=== PATIENT | male | born 1950 | race Caucasian/White ===

== ENCOUNTER 2017-06-08 10:16 | Emergency (ER) | payer OTHER, MEDICARE ==
[2017-06-08] MEDS ORDERED: MORPHINE SULFATE 4 MG/ML SYRG IV ONE (10:33)
[2017-06-08] MEDS ORDERED: ONDANSETRON HCL/PF 2 MG/ML VIAL IV ONE (10:54)
[2017-06-08] MEDS ORDERED: ONDANSETRON HCL/PF 2 MG/ML VIAL ONE (10:56)
[2017-06-08] MEDS ORDERED: MORPHINE SULFATE 4 MG/ML SYRG ONE (10:56)
[2017-06-08 12:58] VITALS: BP 108/58
--- NOTE | 2017-06-08 12:58 | ERNOTE ---
Upper Extremity HPI - Narrative Date of Service: 06/08/17 - General Extremities Pain Location: shoulder: right Time Seen by Provider: 06/08/17 10:28 Source: patient Exam Limitations: no limitations - Immun/Allergies/Home Medications Immunizations: IMMUNIZATION HX Immunizations Up to Date Yes History of Influenza Vaccine Yes Hx Pneumococcal Vaccination Yes Allergies/Adverse Reactions: Allergies Allergy/AdvReac Type Severity Reaction Status Date / Time No Known Allergies Allergy Verified 06/08/17 10:26 Home Medications: HOME MEDICATIONS Atorvastatin Calcium 40 mg PO HS 01/17/15 [Last Taken Unknown] Cholecalciferol (Vitamin D3) [Vitamin D3] 2,000 unit PO DAILY 01/17/15 [Last Taken Unknown] Citalopram Hydrobromide [Celexa] 40 mg PO DAILY 01/17/15 [Last Taken Unknown] Hydrochlorothiazide [Hydrodiuril] 25 mg PO DAILY 01/17/15 [Last Taken Unknown] Losartan Potassium [Cozaar] 100 mg PO DAILY 01/17/15 [Last Taken Unknown] Pregabalin [Lyrica] 150 mg PO BID 01/17/15 [Last Taken Unknown] Simvastatin [Zocor] 40 mg PO HS 01/17/15 [Last Taken Unknown] buPROPion HCL [Wellbutrin SR] 100 mg PO BID 01/17/15 [Last Taken Unknown] HYDROcodone/ACETAMINOPHEN [[place] 5-325 Tablet] 1 each PO Q8H PRN #15 tablet [Last Taken Unknown] - History of Present Illness Narrative: patient presents to the ED for right shoulder injury. He relates that he tripped getting out of bed at 4am and fell onto his right shoulder. He had immediate pain right shoulder. Some numbness in the fingers on the right but denies focal weakness. Denies other injuries. No head injury, no CP or SOB. No abdominal pain. No neck or acute back pain. Pain can be severe with any kind of movement. Has not seen anyone else for this. All pain localized to right shoulder and mid humerus area. Occurred: this morning Location of Incident: home Severity: severe Method of Injury: Reports: fell, direct blow Reason for Fall: Reports: tripped Loss of Consciousness: Reports: no loss of consciousness Modifying Factors - (Improves): Reports: rest Modifying Factors - (Worsens): Reports: movement Associated Symptoms: Denies: weakness Other Injuries: Reports: none Prior Treament: Denies: recently seen Review of Systems - Review of Systems Constitutional: Absent: fever EYE: Absent: vision changes Respiratory: Absent: shortness of breath Cardiology: Absent: chest pain Gastrointestinal/Abdominal: Absent: abdominal pain Genitourinary: Absent: dysuria Musculoskeletal: Present: See HPI Skin: Absent: rash Neurological: Absent: weakness - Patient's Past Medical History Patient History - Medical: Anxiety, Diabetes Type 2 Insulin Dependent Patient History - Cardiac/Respiratory: Asthma, Hypertension, Hyperlipidemia Patient History - Cancer: No Hx of Cancer Patient History - Other: None - Family History Mother Family History - Medical: Diabetes Type 2 Insulin Dependent Family History - Cardiac/Respiratory: No pertinent hx - Social History Living Situations: home Abuse History: No History of abuse Psych History: Hx of Anxiety Alcohol Use: none Drug Use: none - Immunizations Immunizations Up to Date: Yes Hx Pneumococcal Vaccination: Yes History of Influenza Vaccine: Yes Physical Exam - Physical Exam General Appearance: Present: alert, no apparent distress Head Exam: Present: normal inspection, no evidence of injury Eye Exam: Normal inspection: bilateral, PERRL: bilateral Ears, Nose, Throat: Present: normal ENT inspection Neck: Present: normal inspection, nontender. Absent: tender posterior midline Respiratory: Present: no respiratory distress, normal breath sounds, lungs clear Cardiovascular/Chest: Present: regular rate, rhythm, normal peripheral pulses, other - strong radial pulse Gastrointestinal/Abdominal: Present: normal bowel sounds, nontender, nondistended, soft Back Exam: Present: normal inspection, no vertebral tenderness Extremity Exam: Present: other - tenderness lateral right shoulder. Any ROM right shoulder causes pain. Mild tendenress mid humerus also. No specific elbow or forearm/wrist tenderness. No open fracture. No compartment syndrome. Neurological Exam: Present: alert, normal mood/affect, calciminer II-XII nml as tested , other - pain limits exam but no clear loss of motor function right hand, can squeeze my fingers. Lateral deltoid LT sensation inteact. Sensation hand intact. No clear acute motor or sensory deficits. Skin Exam: Present: normal color, warm/dry ED Progress - Vital Signs Patient's Vital Signs:: I have reviewed the patient's vital signs. Vital Signs: Vital Signs 06/08/17 10:19 Temperature 36.8 C Pulse Rate 51 L Respiratory 12 Rate Blood Pressure 98/54 O2 Sat by Pulse 96 Oximetry - X-Ray X-Ray #1 X-Ray: humerus Interpretation: Interp. by me X-ray Comments: I reviewed official radiology report X-Ray #2 X-Ray: shoulder Interpretation: Interp. by me X-ray Comments: I reviweed official radiology report X-Ray #3 X-Ray: axillary view Interpretation: Interp. by me X-ray Comments: I reviewed official radiology report - Progress/Reassessment Chief Complaint: Upper Extremity Injury/Problem Progress Note-Subjective: 06/08/17 12:[address] Healy who reviewed images. He recommends sling/shoulder immobilizer and follow-up in the office next week. No dislocation, but fracture noted. Pt agreeable. I discussed warning signs and reasons to return as well as the need for close f/u. Departure Clinical Impression: Humerus head fracture - Departure Disposition: Home self-care Condition: Stable Additional Instructions: Rest. Ice. Take stool softener while taking pain medications, no driving while taking. I spoke with Dr Healy, he wants you to call the office to schedule an appointment for next week. Use shoulder immobilizer as directed until you are seen next week in the Orthopedics office. REturn for increased pain, numbness, tingling, weakness or if your condition worsens or changes in any way. Prescriptions: HYDROcodone/ACETAMINOPHEN [[place] 5-325 Tablet] 1 each PO Q8H PRN #15 tablet PRN Reason: Pain
== END 2017-06-08 13:06 | disposition home or self-care (01) ==
LOC: ER 10:16
DX: M84.421A Pathological fracture, right humerus, initial encounter for fracture (principal); W06.XXXA Fall from bed, initial encounter; Y93.89 Activity, other specified; Y92.003 Bedroom of unspecified non-institutional (private) residence as the place of occurrence of the external cause; E11.9 Type 2 diabetes mellitus without complications; Z79.4 Long term (current) use of insulin; I10 Essential (primary) hypertension; E78.5 Hyperlipidemia, unspecified; F41.9 Anxiety disorder, unspecified
CPT/HCPCS: 73020; 73030; 73060; 96374; 96375; 99284; J2405

== ENCOUNTER 2017-08-29 09:08 | Emergency (ER) | payer MEDICARE, OTHER ==
[2017-08-29 09:26] VITALS: BP 121/73
--- NOTE | 2017-08-29 09:27 | ERNOTE ---
ENT HPI Presenting Symptoms: nosebleed Time Seen by Provider: 08/29/17 09:11 Source: patient, family - Immun/Allergies/Home Medications Immunizations: IMMUNIZATION HX Immunizations Up to Date Yes History of Influenza Vaccine Yes Hx Pneumococcal Vaccination Yes Allergies/Adverse Reactions: Allergies Allergy/AdvReac Type Severity Reaction Status Date / Time No Known Allergies Allergy Verified 06/08/17 10:26 Home Medications: HOME MEDICATIONS Atorvastatin Calcium 40 mg PO HS 01/17/15 [Last Taken Unknown] Citalopram Hydrobromide [Celexa] 40 mg PO DAILY 01/17/15 [Last Taken Unknown] buPROPion HCL [Wellbutrin SR] 200 mg PO DAILY 01/17/15 [Last Taken Unknown] HYDROcodone/ACETAMINOPHEN [[place] 5-325 Tablet] 1 each PO Q8H PRN #15 tablet [Last Taken Unknown] Albuterol Sulfate [Proair Respiclick] 90 mcg IH PRN 08/29/17 [Last Taken Unknown ] Loratadine [Claritin] 10 mg PO DAILY 08/29/17 [Last Taken Unknown] Prazosin HCl [Minipress] 2 mg PO HS 08/29/17 [Last Taken Unknown] Pregabalin [Lyrica] 150 mg PO BID 08/29/17 [Last Taken Unknown] Simethicone [Gas Relief] 160 mg PO QID 08/29/17 [Last Taken Unknown] - History of Present Illness Narrative: Patient had a nose bleed a couple of days ago that resolved. This morning he was blowing his nose when he started to bleed again out of his right nostril, denies bleeding from any other source, no blood thinners or aspirin Date (Duration): 08/29/17 Time (Timing): 08:00 ENT Location: Present: nose Prearrival Treatment: Present: squeezing nostrils Review of Systems - Review of Systems Constitutional: Absent: recent illness, fever ENT: Present: See HPI Respiratory: Absent: shortness of breath, cough - Patient's Past Medical History Patient History - Medical: Anxiety, Diabetes Type 2 Insulin Dependent Patient History - Cardiac/Respiratory: Asthma, Hypertension, Hyperlipidemia Patient History - Cancer: No Hx of Cancer Patient History - Other: None - Family History Mother Family History - Medical: Diabetes Type 2 Insulin Dependent Family History - Cardiac/Respiratory: No pertinent hx - Social History Abuse History: No History of abuse Psych History: Hx of Anxiety - Immunizations Immunizations Up to Date: Yes Hx Pneumococcal Vaccination: Yes History of Influenza Vaccine: Yes Physical Exam - Physical Exam General Appearance: Present: wd/wn, alert, no apparent distress Head Exam: Present: normal inspection Eye Exam: Normal inspection: bilateral, Other: right - small amount of blood in eye through tear duct Ears, Nose, Throat: Present: normal pharynx - fresh blood clots, other - right nare fresh bloo clots, no active bleeding Respiratory: Present: no respiratory distress, normal breath sounds, no accessory muscle use, lungs clear Cardiovascular/Chest: Present: regular rate, rhythm, no murmur Neurological Exam: Present: alert, oriented, normal mood/affect Skin Exam: Present: normal color, warm/dry ED Progress - Results and Orders Patient's Lab Results:: I have reviewed the patient's lab results. - Vital Signs Patient's Vital Signs:: I have reviewed the patient's vital signs. - Progress/Reassessment Progress Note-Subjective: 08/29/17 09:43 still small amount of bleeding anterior/posterior nasal trumpet inserted into right nare, inflated with 3ml of air, patient tolerated procedure well 08/29/17 10:34 minimal oozing, added 3ml of air discussed lab results patient has follow up at the ID tomorrow 08/29/17 13:21 LFT's were ordered after patient left as PT, PTT elevated noted elevated AP, will notify patient so he has the results available for his doctor tomorrow Departure Clinical Impression: Bleeding nose - Departure Disposition: Home self-care Condition: Good Instructions: Nosebleed, [id number] Additional Instructions: [facility], tell them about the slightly abnormal blood test the tamponade in your nose should be removed in 24-48 hours
[2017-08-29 09:39] LABS: Hematocrit 33.8 % (42.0-52.0); Hemoglobin 11.2 gm/dL (13.5-18.0); Mean Cell Volume 95.8 fl (78-100); Mean Corpuscular Hemoglobin 31.7 pg (27-31); Mean Corpuscular Hgb Conc 33.1 g/dl (32-36); Mean Platelet Volume 10.9 fl (6.0-9.5); Neutrophil # 3.7 K/mm3 (1.3-6.0); Platelet Count 144 K/mm3 (150-450); Red Blood Count 3.53 M/mm3 (4.7-6.0); Red Cell Distribution Width 16.4 % (11.5-14.0)
[2017-08-29 09:49] LABS: INR 2.19 INR (0.90-1.10); Partial Thrombolplastin Time 42.2 Seconds (24-32); Prothrombin Time (Patient) 22.1 Seconds (9.0-11.0)
[2017-08-29 11:03] LABS: Albumin * 2.2 gm/dl (3.4-5.0); Anion Gap 10.8 mmol/L (6.8-13.8); BUN/Creatinine Ratio 11.1 (9.0-21.6); Bilirubin, Total 1.5 mg/dL (0.0-1.1); Ca. Corrected For Albumin 9.5 mg/dL (8.4-10.2); Calcium * 8.4 mg/dL (7.9-10.9); Carbon Dioxide 26.8 mmol/L (24-32.6); Potassium 3.6 mmol/L (3.4-4.6); Total Protein 7.8 gm/dL (6.2-8.2)
== END 2017-08-29 10:43 | disposition home or self-care (01) ==
LOC: ER 09:08
DX: E78.5 Hyperlipidemia, unspecified; R04.0 Epistaxis; J45.909 Unspecified asthma, uncomplicated; I10 Essential (primary) hypertension; F41.9 Anxiety disorder, unspecified